=== PATIENT | male | born 1980 | race Caucasian/White ===

== ENCOUNTER 2017-02-17 07:53 | Inpatient (IN) | payer MEDICARE, MEDICAID ==
[~2017-02-17 07:53] MED LIST: AUGMENTIN 875-11 TAB PO; FISH OIL 11000 MG/CA PO; FISH OIL300 M1 PO; GAVILAX17 G2 PO; VITA FUSION PO
[2017-02-17 08:26] LABS: BASO % 0.3 % (0-2); EOS % 3.6 % (0-7); EOSINOPHIL ABSOLUTE COUNT 0.3 tho/cmm (0.0-0.7); HCT-HEMATOCRIT 44.6 % (36.0-53.5); HGB-HEMOGLOBIN 15.7 gm/dl (13.5-17.0); IMMATURE GRANULOCYTES ABSOLUTE 0.01 tho/cmm (0-0.03); IMMATURE GRANULOCYTES PERCENT 0.1 % (0-0.3); LYMPH % 36.5 % (20-45); LYMPH ABSOLUTE COUNT 2.6 tho/cmm (0.8-4.5); MCH (MEAN CORPUSCULAR HGB) 28.9 pg (28.0-32.0); MCHC MEAN CORPUSCULAR HGB CONC 35.2 % (32.0-36.0); MEAN PLATELET VOLUME 9.1 cmc (9.4-12.4); MONO % 6.3 % (0-12); MONOCYTE ABSOLUTE COUNT 0.4 tho/cmm (0.0-1.2); NEUTROPHIL ABSOLUTE COUNT 3.7 tho/cmm (1.6-8.0); NEUTROPHIL-AUTOMATED 3.7 tho/cmm (1.6-8.0); NEUTROPHILS % 53.2 % (40-80); PLATELET COUNT 258 tho/cmm (150-450); RED BLOOD COUNT 5.44 mil/cmm (4.40-5.70)
[2017-02-17 08:44] LABS: ANION GAP 11 mmol/L (0-20); BLOOD UREA NITROGEN 13 mg/dl (6-24); CALCIUM 9.4 mg/dl (8.5-10.5); CARBON DIOXIDE-VENOUS 28 mmol/L (22-32); CHLORIDE 102 mmol/l (96-110); CREATININE 0.92 mg/dl (0.60-1.30); GLUCOSE 102 mg/dL (70-110); POTASSIUM 3.6 mmol/L (3.7-5.1); SODIUM 137 mmol/L (135-145); eGFR VALUE FOR BLACK >90 mL/Min
--- NOTE | 2017-02-17 21:07 | NUR ---
VN ROUNDING-DEFERRED PATIENT NOT SLEEPING-WILL DO CHART REVIEW
[2017-02-18 05:32] LABS: HCT-HEMATOCRIT 38.7 % (36.0-53.5); HGB-HEMOGLOBIN 13.7 gm/dl (13.5-17.0); IMMATURE GRANULOCYTES ABSOLUTE 0.01 tho/cmm (0-0.03); IMMATURE GRANULOCYTES PERCENT 0.1 % (0-0.3); LYMPH % 12.1 % (20-45); LYMPH ABSOLUTE COUNT 1.1 tho/cmm (0.8-4.5); MCH (MEAN CORPUSCULAR HGB) 28.9 pg (28.0-32.0); MCHC MEAN CORPUSCULAR HGB CONC 35.4 % (32.0-36.0); MCV (MEAN CELL VOLUME) 81.6 fl (82.0-96.0); MEAN PLATELET VOLUME 9.2 cmc (9.4-12.4); MONO % 5.8 % (0-12); MONOCYTE ABSOLUTE COUNT 0.5 tho/cmm (0.0-1.2); NEUTROPHIL ABSOLUTE COUNT 7.2 tho/cmm (1.6-8.0); NEUTROPHIL-AUTOMATED 7.2 tho/cmm (1.6-8.0); PLATELET COUNT 240 tho/cmm (150-450); RED BLOOD COUNT 4.74 mil/cmm (4.40-5.70); RED CELL DISTRIBUTION WIDTH 12.9 % (12.4-16.4); WHITE BLOOD COUNT 8.8 tho/cmm (4.0-10.0)
[2017-02-18 05:44] LABS: CHLORIDE 109 mmol/l (96-110); SODIUM 141 mmol/L (135-145)
[2017-02-18 05:52] LABS: ANION GAP 15 mmol/L (0-20); BLOOD UREA NITROGEN 11 mg/dl (6-24); CALCIUM 8.2 mg/dl (8.5-10.5); CARBON DIOXIDE-VENOUS 21 mmol/L (22-32); CREATININE 0.86 mg/dl (0.60-1.30); GLUCOSE 149 mg/dL (70-110); eGFR VALUE FOR BLACK >90 mL/Min
--- NOTE | 2017-02-18 20:56 | NUR ---
LEOBARDO ROUNDING-PATIENT LAYING IN BED AND HAVING PAIN 6-7 OUT OF 10 AND SAYS HE IS READY FOR SOME PAIN MED. TOLD HIM I WOULD PAGE HIS NURSE HE GOT IT LAST A LITTLE AFTER 5. PATIENT ALSO ASKED ABOUT WHEN THE LMEA CATH WOULD BE REMOVED? I TOLD HIM WE WOULD PUT A FORM ON THE CHART TO MAKE SURE THE DOCTOR ADDRESSES TOMORROW NO FURTHER QUESTIONS OR CONCERNS. CHART REVIEWED
--- NOTE | 2017-02-20 16:08 | NUR ---
VIRTUAL CARE NOTE: PT RESTING ON BED, STATES DOING OK, LEMA AND APOLINAR DC'D, TOLERATES PO. PLAN OF CARE DISCUSSED WITH PT, ENCOURAGED AMBULATION. ORDER FOR DC HOME IN AM. PT WILL GO HOME WITH FAMILY SUPPORT, NO NEEDS FOR DISCHARGE AT THIS TIME.
[2017-02-21] MEDS ORDERED: NORCO 5-325 TA1 EACH PO (11:32)
== END 2017-02-21 13:00 | DRG 330 ==
LOC: SHSC 07:53 → ORW 10:20 → PACU 14:09 → 5WD 16:15
PROVIDERS: Anesthesiology; ADMIT Surgery
PROC: 0DTN4ZZ Resection of Sigmoid Colon, Percutaneous Endoscopic Approach (ICD-10-PCS; principal; 2017-02-17)
PROC: 8E0W4CZ Robotic Assisted Procedure of Trunk Region, Percutaneous Endoscopic Approach (ICD-10-PCS; principal; 2017-02-17)
PROC: 3E0F7GC Introduction of Other Therapeutic Substance into Respiratory Tract, Via Natural or Artificial Opening (ICD-10-PCS; principal; 2017-02-17)
DX: K57.20 Diverticulitis of large intestine with perforation and abscess without bleeding (principal)
CPT/HCPCS: J0131; J0690; J1650; J1885; J2250; J2270; J2405; J3010; J7030